=== PATIENT | male | born 1960 | race Caucasian/White ===

== ENCOUNTER 2017-01-03 12:08 | Emergency (ER) | payer OTHER ==
[2017-01-03 12:17] VITALS: BP 112/62
--- NOTE | 2017-01-03 13:49 | EDM.PDOC ---
ED HPI SEIZURE COMPLAINT - General Chief Complaint: Syncope Stated Complaint: [facility] Time Seen by Provider: 01/03/17 12:16 Source of Information: Reports: Patient History Limitations: Reports: No limitations - History of Present Illness INITIAL COMMENTS - FREE TEXT/NARRATIVE: Patient is a 56-year-old male who presents to the ED via ambulance with history of syncopal episode. Patient was at the [facility] today for routine checkup and refill is metformin when during questioning he had a syncopal episode and passed out for a short period of time. Patient was only out for a few seconds and came to with no confusion noted. He was diaphoretic, lightheaded, and mildly nauseated with onset. Patient states for the past 4-5 days he's had some cold-like symptoms with intermittent productive cough. States with coughing has developed an ache to the midportion of his of his back. Pain is worsened with movement and also palpation. Denies any pain to his chest, abdomen, or legs. Has recently felt feverish with intermittent chills. Has intermittent body aches as well. States he did have recent sick exposures with individual having similar symptoms. Did not obtain the flu vaccination this year. Denies any recent trauma. Past medical history includes diabetes Type II with last A1c of 6.4 and hypercholesterolemia. Timing/Duration: Reports: sudden onset Event Occurred (Where): other Event (Witnessed/Unwitnessed): witnessed Quality: Reports: unconscious. Denies: generalized shaking, focal shaking, awake, fixed gaze Severity: mild Context: Reports: illness. Denies: recent ETOH, new/change in medications, missed med dose(s), trauma, photo stimulation, activity/exercise Pre Event Symptom(s): Reports: cough, fever/chills, shortness of breath, syncope. Denies: nausea/vomiting Event Symptoms: Reports: diaphoresis Post Event Symptoms: Denies: confused, combative, lethargic, headache, altered speech, postictal duration: - Related Data Allergies/ADRs: Allergies Allergy/AdvReac Type Severity Reaction Status Date / Time No Known Allergies Allergy Verified 01/03/17 15:15 ED ROS GENERAL - Review of Systems Review Of Systems: ROS reveals no pertinent complaints other than HPI. - Physical Exam Exam: See Below Exam Limited By: No limitations General Appearance: alert, WD/WN, no apparent distress Eye Exam: bilateral eye: EOMI, PERRL Ears: hearing grossly normal Nose: normal inspection Throat/Mouth: Normal inspection, Normal oropharynx, Normal voice, No airway compromise Head Exam: atraumatic, normocephalic Neck: normal inspection, supple, non-tender, full range of motion. No: lymphadenopathy (L), lymphadenopathy (R) Respiratory/Chest: no respiratory distress, lungs clear, normal breath sounds, no accessory muscle use, chest non-tender Cardiovascular: normal peripheral pulses, no murmur, tachycardia GI/Abdominal: normal bowel sounds, soft, non tender, no organomegaly, no distention (Male) Exam: Deferred Neuro Exam (Abbreviated): alert, oriented, CN II-XII intact, normal cognition, no motor/sensory deficits Back Exam: normal inspection, full range of motion. No: CVA tenderness (L), CVA tenderness (R) Extremities: normal inspection, normal range of motion, non-tender, no pedal edema, normal capillary refill Psychiatric: normal affect, normal mood Skin Exam: Warm, Dry, Intact, Normal color Course - Vital Signs Last Recorded V/S: Last Vital Signs Temp 98.5 F 01/03/17 12:14 Pulse 64 01/03/17 17:25 Resp 18 01/03/17 12:14 BP 112/62 01/03/17 12:14 Pulse Ox 97 01/03/17 17:25 Orthostatic Blood Pressure [ 109/66 Standing] Orthostatic Blood Pressure [ 97/73 Sitting] Orthostatic Blood Pressure [ 108/53 Supine] - Orders/Labs/Meds Orders: Active Orders 24 hr Category Date Time Status EKG Documentation Completion [RC] STAT Care 01/03/17 12:27 Active Orthostatic Vital Signs [RC] ASDIRECTED Care 01/03/17 12:29 Active CXR [Chest 2V] [CR] Stat Exams 01/03/17 12:28 Ordered C-REACTIVE PROTEIN [CHEM] Stat Lab 01/03/17 12:27 Ordered CBC WITH AUTO DIFF [HEME] Stat Lab 01/03/17 12:27 Ordered COMPREHENSIVE METABOLIC PN,CMP [CHEM] Stat Lab 01/03/17 12:27 Ordered D-DIMER QUANTITATIVE [COAG] Stat Lab 01/03/17 12:28 Ordered LIPASE [CHEM] Stat Lab 01/03/17 12:27 Ordered TROPONIN I [CHEM] Stat Lab 01/03/17 12:27 Ordered TSH [CHEM] Stat Lab 01/03/17 12:27 Ordered Labs: Laboratory Tests 01/03/17 01/03/17 01/03/17 Range/Units 13:25 13:25 13:25 WBC 2.96 L (4.23-9.07) K/mm3 RBC 4.56 L (4.63-6.08) M/mm3 Hgb 13.3 L (13.7-17.5) gm/L Hct 41.9 (40.1-51.0) % MCV 91.9 (79.0-92.2) fl MCH 29.2 (25.7-32.2) pg MCHC 31.7 L (32.2-35.5) g/dl RDW Std Deviation 49.4 H (35.1-43.9) fL Plt Count 149 L (163-337) K/mm3 MPV 9.4 (9.4-12.3) fl Neut % (Auto) 42.3 (34.0-67.9) % Lymph % (Auto) 34.8 (21.8-53.1) % Hooker % (Auto) 21.6 H (5.3-12.2) % Eos % (Auto) 1.0 (0.8-7.0) Baso % (Auto) 0.3 (0.1-1.2) % Neut # (Auto) 1.25 L (1.78-5.38) K/mm3 Lymph # (Auto) 1.03 L (1.32-3.57) K/mm3 Hooker # (Auto) 0.64 (0.30-0.82) K/mm3 Eos # (Auto) 0.03 L (0.04-0.54) K/mm3 Baso # (Auto) 0.01 (0.01-0.08) K/mm3 Manual Slide Review Abnormal smear D-Dimer, Quantitative 0.54 (0.19-0.59) mg/L Sodium 142 (136-145) mEq/L Potassium 4.2 (3.5-5.1) mEq/L Chloride 106 (98-107) mEq/L Carbon Dioxide 28 (21-32) mEq/L Anion Gap 12.2 (5-15) BUN 16 (7-18) mg/dL Creatinine 0.9 (0.7-1.3) mg/dL Est Cr Clr Drug Dosing TNP Estimated GFR (MDRD) > 60 (>60) mL/min BUN/Creatinine Ratio 17.8 (14-18) Glucose 125 H (74-106) mg/dL Calcium 8.6 (8.5-10.1) mg/dL Total Bilirubin 0.4 (0.2-1.0) mg/dL AST 27 (15-37) U/L ALT 42 (16-63) U/L Alkaline Phosphatase 50 (46-116) U/L Troponin I < 0.017 (0.00-0.056) ng/mL C-Reactive Protein 1.3 H* (<1.0) mg/dL Total Protein 7.0 (6.4-8.2) g/dl Albumin 3.6 (3.4-5.0) g/dl Globulin 3.4 gm/dL Albumin/Globulin Ratio 1.1 (1-2) Lipase 254 (73-393) U/L TSH 3rd Generation 0.799 (0.358-3.74) uIU/mL 01/03/17 Range/Units 16:14 WBC (4.23-9.07) K/mm3 RBC (4.63-6.08) M/mm3 Hgb (13.7-17.5) gm/L Hct (40.1-51.0) % MCV (79.0-92.2) fl MCH (25.7-32.2) pg MCHC (32.2-35.5) g/dl RDW Std Deviation (35.1-43.9) fL Plt Count (163-337) K/mm3 MPV (9.4-12.3) fl Neut % (Auto) (34.0-67.9) % Lymph % (Auto) (21.8-53.1) % Hooker % (Auto) (5.3-12.2) % Eos % (Auto) (0.8-7.0) Baso % (Auto) (0.1-1.2) % Neut # (Auto) (1.78-5.38) K/mm3 Lymph # (Auto) (1.32-3.57) K/mm3 Hooker # (Auto) (0.30-0.82) K/mm3 Eos # (Auto) (0.04-0.54) K/mm3 Baso # (Auto) (0.01-0.08) K/mm3 Manual Slide Review D-Dimer, Quantitative (0.19-0.59) mg/L Sodium (136-145) mEq/L Potassium (3.5-5.1) mEq/L Chloride (98-107) mEq/L Carbon Dioxide (21-32) mEq/L Anion Gap (5-15) BUN (7-18) mg/dL Creatinine (0.7-1.3) mg/dL Est Cr Clr Drug Dosing Estimated GFR (MDRD) (>60) mL/min BUN/Creatinine Ratio (14-18) Glucose (74-106) mg/dL Calcium (8.5-10.1) mg/dL Total Bilirubin (0.2-1.0) mg/dL AST (15-37) U/L ALT (16-63) U/L Alkaline Phosphatase (46-116) U/L Troponin I < 0.017 (0.00-0.056) ng/mL C-Reactive Protein (<1.0) mg/dL Total Protein (6.4-8.2) g/dl Albumin (3.4-5.0) g/dl Globulin gm/dL Albumin/Globulin Ratio (1-2) Lipase (73-393) U/L TSH 3rd Generation (0.358-3.74) uIU/mL Meds: Medications Discontinued Medications Generic Name Dose Route Start Last Admin Trade Name Freq PRN Reason Stop Dose Admin Iopamidol 80 ml 01/03/17 15:14 01/03/17 15:21 Isovue-300 (61%) IVPUSH 01/03/17 15:15 80 ml ONETIME ONE Administration Sodium Chloride 10 ml 01/03/17 15:14 01/03/17 15:21 Saline Flush FLUSH 01/03/17 15:15 10 ml ONETIME ONE Administration - Re-Assessments/Exams Free Text/Narrative Re-Assessment/Exam: Vital signs blood pressure 115/65, heart rate 66, SpO2 90% on room air. IV was started by ambulance crew. Initial lab studies include CBC, chem 14, CRP , lipase, troponin, TSH, EKG, and chest x-ray two-view, orthostatic vitals, and d-dimer. EKG revealed a sinus rhythm rate is 64 with normal P axis, [place] interval is 181, QTC 47, poor R wave progression with decreased noted to precordial leads. Left axis deviation. 01/03/17 13:[address] Reyes. Retrocardiac nodularity noted. Suggests CT of the chest to better determine etiology. Will await lab results prior to proceeding. Labs reviewed: White blood cell count 2.96, hemoglobin is 13.3, platelets 149, d -dimer 0.54, sodium 142, potassium 4.2, glucose 126, creatinine 0.9, troponin 0.017, lipase 254, CRP 1.3, TSH 0.799. 01/03/17 15:[address] of the chest with IV contrast. 01/03/17 16:01 CT of the chest impression: Slightly prominent mediastinal lymph nodes. This may related to old inflammatory process although followup noncontrast chest CT could be considered in 6 months to confirm stability. Followup with occurred in June or July of 2017. Minimal scarring or atelectasis within the right lung base. Mild coronary artery calcification. Multiple calcified gallstones within the gallbladder. 01/03/17 16:03 Ordered 2nd troponin. 01/03/17 16:24 Reassessment, O2 sats on room air 93-97% on room air. No shortness of breath, cp, dizziness, or lightheadedness. He did get up and walk with no issues. Labs indicated mild pantocytopenia most likely related to recent viral infection. Denies family history of Non Hodgkins lymphoma/Hodgkins Lymphoma. Will discharge patient home with instructions. 01/03/17 16:54 2nd Troponin negative. Departure - Departure Time of Disposition: 16:25 Disposition: Home, Self-Care 01 Condition: good Clinical Impression: Viral upper respiratory tract infection with cough Syncopal episodes Qualifiers: Syncope type: unspecified Qualified Code(s): R55 - Syncope and collapse Instructions: Upper Respiratory Infection, Adult, [id number], Cough, Adult, Syncope, [id number] Referrals: Antonieta Lees [employer] [Primary Care Provider] - Forms: ED Department Discharge Additional Instructions: Unclear why you had a syncopal episode. Most likely this is related to vasovagal. Continue to monitor cough. Push the fluids. Ensure adequate rest. Upper respiratory symptoms most likely viral and will runs its course. See your PCP in one week for reevaluation. CT of the chest did reveal slightly prominent mediastinal lymph nodes. This may related to an old inflammatory process. Suggest followup with noncontrast chest CT in 6 months to confirm stability. Return to the E.D. as needed for any new or worsening symptoms. - My Orders Last 24 Hours: My Active Orders 01/03/17 12:27 EKG Documentation Completion [RC] STAT C-REACTIVE PROTEIN [CHEM] Stat CBC WITH AUTO DIFF [HEME] Stat COMPREHENSIVE METABOLIC PN,CMP [CHEM] Stat LIPASE [CHEM] Stat TROPONIN I [CHEM] Stat TSH [CHEM] Stat 01/03/17 12:28 CXR [Chest 2V] [CR] Stat D-DIMER QUANTITATIVE [COAG] Stat 01/03/17 12:29 Orthostatic Vital Signs [RC] ASDIRECTED - Assessment/Plan Last 24 Hours: My Active Orders 01/03/17 12:27 EKG Documentation Completion [RC] STAT C-REACTIVE PROTEIN [CHEM] Stat CBC WITH AUTO DIFF [HEME] Stat COMPREHENSIVE METABOLIC PN,CMP [CHEM] Stat LIPASE [CHEM] Stat TROPONIN I [CHEM] Stat TSH [CHEM] Stat 01/03/17 12:28 CXR [Chest 2V] [CR] Stat D-DIMER QUANTITATIVE [COAG] Stat 01/03/17 12:29 Orthostatic Vital Signs [RC] ASDIRECTED
--- NOTE | 2017-01-03 14:16 | CR ---
Chest: Two views of the chest were obtained. Comparison: No previous chest x-ray. Heart size and mediastinum are within normal limits. Lungs are clear. Bony structures are within normal limits for the patient's age. Impression: 1. Nothing acute is seen on two-view chest x-ray. Diagnostic code #1
[2017-01-03] MEDS ORDERED: Iopamidol 612 MG/ML 100 ML Bottle IVPUSH ONE (15:14)
[2017-01-03] MEDS ORDERED: Sodium Chloride 0.9% 10 ML Syringe FLUSH ONE (15:14)
--- NOTE | 2017-01-03 15:39 | CT ---
CT chest Technique: Multiple axial sections were obtained through the chest. Intravenous contrast was utilized. Findings: Scattered lymph nodes are seen within the mediastinum. Largest lymph node measures approximately 1.4 cm. These lymph nodes are slightly prominent in size. Mild coronary artery calcification is seen. No pericardial thickening is seen. Numerous calcified gallstones are seen within the gallbladder. Slight parenchymal density within the right lung base most likely due to atelectasis or mild scarring. Nothing acute is seen within the right or left lungs. Bone window settings were reviewed which shows mild degenerative spurring within the spine. Impression: 1. Slightly prominent mediastinal lymph nodes. This may relate to old inflammatory process although follow-up noncontrast chest CT could be considered in 6 months to confirm stability. Follow-up would occurred in June or July,. 2. Minimal scarring or atelectasis within the right lung base. Mild coronary artery calcification. 3. Multiple calcified gallstones within the gallbladder. Diagnostic code #9
== END 2017-01-03 17:25 | disposition home or self-care (01) ==
LOC: SUPCPDRO 12:08 → JD.ED 12:08
DX: R55 Syncope and collapse (principal); J06.9 Acute upper respiratory infection, unspecified; R05 Cough; Q98 Other sex chromosome abnormalities, male phenotype, not elsewhere classified; E11.9 Type 2 diabetes mellitus without complications; E78.00 Pure hypercholesterolemia, unspecified; K80.80 Other cholelithiasis without obstruction; D61.818 Other pancytopenia; R59.9 Enlarged lymph nodes, unspecified
CPT/HCPCS: 36415; 71020; 71260; 80053; 80061; 83036; 83690; 84402; 84403; 84443; 84484; 85025; 85379; 86140; 93005; 99285; J7050; Q9967; 99284